=== PATIENT | male | born 1950 | race African-American/Black ===

== ENCOUNTER 2019-08-28 19:38 | Emergency (ER) | payer MEDICARE, MEDICAID ==
[~2019-08-28] VITALS: Ht 172.7 cm; Wt 81.0 kg
[2019-08-29 01:52] LABS: HEMATOCRIT 38.2 % (42.0-52.0); HEMOGLOBIN 12.4 g/dL (14.0-18.0); MEAN CORPUSCULAR HEMOGLOBIN 26.6 pg (28.0-32.0); MEAN CORPUSCULAR VOLUME 81.7 fL (80.0-94.0); PLATELET 159 x1000/uL (130-400); RED BLOOD CELL COUNT 4.68 mill/uL (4.7-6.1); RED CELL DISTRIBUTION WIDTH 14.5 % (11.6-14.6)
[2019-08-29 01:59] LABS: CHLORIDE 108 mEq/L (98-107)
[2019-08-29 03:09] VITALS: BP 132/69
== END 2019-08-29 03:13 | disposition home or self-care (01) ==
LOC: ER 19:38
DX: I10 Essential (primary) hypertension (principal); F17.200 Nicotine dependence, unspecified, uncomplicated; Z86.73 Personal history of transient ischemic attack (TIA), and cerebral infarction without residual deficits; Z93.3 Colostomy status; Z98.890 Other specified postprocedural states
CPT/HCPCS: 36415; 80053; 85027; 93005; 99284

== ENCOUNTER 2019-12-24 20:35 | Inpatient (IN) | payer BC, MEDICAID ==
[~2019-12-24] VITALS: Ht 172.7 cm; Wt 76.7 kg
[2019-12-24] MEDS ORDERED: ASPIRIN 81MG TABLET PO ONE (22:30)
[2019-12-24 23:24] LABS: BASOPHILS % 1.8 % (0.0-2.0); EOSINOPHILS % 1.8 % (0.0-5.0); HEMATOCRIT. 39.1 % (42.0-52.0); HEMOGLOBIN. 12.9 g/dL (14.0-18.0); LYMPHOCYTES % 39.6 % (20.0-50.0); MEAN CORPUSCULAR HEMOGLOBIN 27.5 pg (28.0-32.0); MEAN CORPUSCULAR VOLUME 83.3 fL (80.0-94.0); MEAN PLATELET VOLUME 8.1 fl (7.4-10.4); MONOCYTES % 11.4 % (2.0-8.0); NEUTROPHILS % 45.4 % (40.0-76.0); PLATELET 110 x1000/uL (130-400); RED BLOOD CELL COUNT 4.69 mill/uL (4.7-6.1); RED CELL DISTRIBUTION WIDTH 14.2 % (11.6-14.6)
[2019-12-24 23:31] LABS: CHLORIDE 103 mEq/L (98-107)
[2019-12-25 15:09] VITALS: BP 157/77
[2019-12-25 16:00] VITALS: BP 150/77
[2019-12-25 18:31] LABS: *AMPHETAMINES SCREEN URINE NEGATIVE (NEGATIVE); *BARBITURATES SCREEN URINE NEGATIVE (NEGATIVE); *BENZODIAZEPINES SCREEN URINE NEGATIVE (NEGATIVE); *COCAINE SCREEN URINE PRESUMTIVE POSITIVE (NEGATIVE); METHADONE URINE SCREEN NEGATIVE (NEGATIVE)
[2019-12-25 18:32] LABS: CANNABINOID URINE SCREEN NEGATIVE (NEGATIVE); OPIATES URINE SCREEN NEGATIVE (NEGATIVE); PHENCYCLIDINE URINE SCREEN NEGATIVE (NEGATIVE)
[2019-12-25 20:02] VITALS: BP 159/105
[2019-12-25] MEDS ORDERED: CLONIDINE 0.2MG TABLET PO PRN (20:45)
[2019-12-25] MEDS ORDERED: ZOLPIDEM TARTRATE 5MG TABLET PO PRN (21:00)
[2019-12-25] MEDS: ASPIRIN 81MG TABLET PO SCH (21:28)
[2019-12-25] MEDS: FUROSEMIDE 40MG TABLET PO SCH (21:28)
[2019-12-25] MEDS: LISINOPRIL 10MG TABLET PO SCH (21:28)
[2019-12-25] MEDS: ENOXAPARIN 40MG/0.4ML SYR SUBCUT SCH (21:28)
[2019-12-25 22:00] VITALS: BP 136/88
[2019-12-26] VITALS (12 sets, daily range): BP systolic 121–159; BP diastolic 56–92
[2019-12-26 07:45] LABS: BASOPHILS % 1.1 % (0.0-2.0); EOSINOPHILS % 2.2 % (0.0-5.0); HEMATOCRIT. 40.1 % (42.0-52.0); HEMOGLOBIN. 13.2 g/dL (14.0-18.0); LYMPHOCYTES % 23.4 % (20.0-50.0); MEAN CORPUSCULAR HEMOGLOBIN 27.3 pg (28.0-32.0); MEAN CORPUSCULAR VOLUME 82.8 fL (80.0-94.0); MEAN PLATELET VOLUME 9.1 fl (7.4-10.4); MONOCYTES % 12.1 % (2.0-8.0); NEUTROPHILS % 61.2 % (40.0-76.0); PLATELET 94 x1000/uL (130-400); RED BLOOD CELL COUNT 4.85 mill/uL (4.7-6.1); RED CELL DISTRIBUTION WIDTH 13.9 % (11.6-14.6)
[2019-12-26 07:58] LABS: CHLORIDE 104 mEq/L (98-107)
[2019-12-26 08:06] LABS: CREATINE KINASE 111 IU/L (39-308)
[2019-12-26 08:08] LABS: CREATINE KINASE MB FRACTION < 1.0 ng/mL (0.5-3.6)
[2019-12-26] MEDS: ASPIRIN 81MG TABLET PO SCH (08:15)
[2019-12-26] MEDS: FUROSEMIDE 40MG TABLET PO SCH (08:15)
[2019-12-26] MEDS: LISINOPRIL 10MG TABLET PO SCH (08:15)
[2019-12-26] MEDS ORDERED: IPRATROPIUM/ALBUTEROL 0.5-3(2.5)MG/3ML NEB HHN PRN (12:15)
[2019-12-26] MEDS: THIAMINE HCL 100MG TABLET PO SCH (13:10)
[2019-12-26] MEDS: MULTIVITAMINS,THER W-MINERALS TABLET PO SCH (13:10)
[2019-12-26] MEDS: FOLIC ACID 1MG TABLET PO SCH (13:10)
[2019-12-26 14:41] LABS: BG BASE EXCESS 3.8 mmol/L (-2.0-2.0); BG CARBOXYHEMOGLOBIN 1.4 % (0.5-1.5); BG DEOXYHEMOGLOBIN 3.2 % (0.0-5.0); BG FRACTION INSPIRED OXYGEN 21; BG HCO3 ACT 27.3 mmol/L (22.0-26.0); BG METHEMOGLOBIN 0.2 % (0.0-1.5); BG OXYGEN SATURATION 96.7 % (92.0-98.5); BG OXYHEMOGLOBIN 95.2 % (94.0-97.0); BG PCO2 37.3 mmHg (35.0-45.0); BG PH 7.482 (7.350-7.450); BG PO2 82.7 mmHg (75.0-100.0); BG SAMPLE SITE LEFT RADIAL; BG TOTAL HEMOGLOBIN 14.6 g/dL (12.0-18.0); BG VENT MODE ROOM AIR
[2019-12-26] MEDS: HYDROCODONE/ACETAMINOPHEN 5/325MG TABLET PO PRN ×2 (15:01→21:01)
[2019-12-26 15:28] LABS: CREATINE KINASE 94 IU/L (39-308); CREATINE KINASE MB FRACTION < 1.0 ng/mL (0.5-3.6); T4 FREE 0.85 ng/dL (0.76-1.46)
[2019-12-26] MEDS: IPRATROPIUM/ALBUTEROL 0.5-3(2.5)MG/3ML NEB HHN SCH ×2 (15:35→20:44)
[2019-12-26] MEDS: BUPROPION HCL 150MG TABLET XL 24HR PO SCH (16:19)
[2019-12-26] MEDS: ENOXAPARIN 40MG/0.4ML SYR SUBCUT SCH (21:00)
[2019-12-26] MEDS: PANTOPRAZOLE 40MG DR TABLET PO SCH (21:00)
[2019-12-26] MEDS ORDERED: IOHEXOL-350 100 ML BOTTLE ONE (21:02)
[2019-12-27] VITALS (8 sets, daily range): BP systolic 125–144; BP diastolic 70–86
[2019-12-27] MEDS: IPRATROPIUM/ALBUTEROL 0.5-3(2.5)MG/3ML NEB HHN SCH ×2 (02:13→09:32)
[2019-12-27 06:47] LABS: EOSINOPHILS % 1.4 % (0.0-5.0); HEMATOCRIT. 40.1 % (42.0-52.0); HEMOGLOBIN. 13.2 g/dL (14.0-18.0); LYMPHOCYTES % 22.5 % (20.0-50.0); MEAN CORPUSCULAR HEMOGLOBIN 27.1 pg (28.0-32.0); MEAN CORPUSCULAR VOLUME 82.2 fL (80.0-94.0); MEAN PLATELET VOLUME 8.6 fl (7.4-10.4); MONOCYTES % 13.1 % (2.0-8.0); PLATELET 104 x1000/uL (130-400); RED BLOOD CELL COUNT 4.87 mill/uL (4.7-6.1); RED CELL DISTRIBUTION WIDTH 13.9 % (11.6-14.6)
[2019-12-27 06:58] LABS: CHLORIDE 103 mEq/L (98-107)
[2019-12-27] MEDS: PANTOPRAZOLE 40MG DR TABLET PO SCH (07:14)
[2019-12-27] MEDS: MULTIVITAMINS,THER W-MINERALS TABLET PO SCH (08:08)
[2019-12-27] MEDS: FOLIC ACID 1MG TABLET PO SCH (08:08)
[2019-12-27] MEDS: THIAMINE HCL 100MG TABLET PO SCH (08:09)
[2019-12-27] MEDS: FUROSEMIDE 40MG TABLET PO SCH (08:09)
[2019-12-27] MEDS: ASPIRIN 81MG TABLET PO SCH (08:09)
[2019-12-27] MEDS: BUPROPION HCL 150MG TABLET XL 24HR PO SCH (08:09)
[2019-12-27] MEDS: LISINOPRIL 10MG TABLET PO SCH (08:09)
[2019-12-27] MEDS ORDERED: ASPI-1497 MT (13:36)
[2019-12-27] MEDS ORDERED: AMLO5TAB4 MT (13:36)
[2019-12-27] MEDS ORDERED: PROT40 MT (13:36)
[2019-12-27] MEDS ORDERED: NICO-645 TP (13:36)
[2019-12-27] MEDS ORDERED: ALBU90AE INH (13:36)
== END 2019-12-27 15:53 | disposition home or self-care (01) | DRG 189 ==
LOC: ER 20:35 → 3WST 12-25 00:36 → ENRESERV 12-25 14:04
PROVIDERS: ADMIT Ophthalmology; ATTEND Ophthalmology
DX: J96.00 Acute respiratory failure, unspecified whether with hypoxia or hypercapnia (principal); J44.1 Chronic obstructive pulmonary disease with (acute) exacerbation; J98.11 Atelectasis; R07.89 Other chest pain; F10.10 Alcohol abuse, uncomplicated; D69.6 Thrombocytopenia, unspecified; D64.9 Anemia, unspecified; I10 Essential (primary) hypertension; F17.210 Nicotine dependence, cigarettes, uncomplicated; Z77.090 Contact with and (suspected) exposure to asbestos; R74.0 Nonspecific elevation of levels of transaminase and lactic acid dehydrogenase [LDH]; R79.89 Other specified abnormal findings of blood chemistry; F14.90 Cocaine use, unspecified, uncomplicated; D72.819 Decreased white blood cell count, unspecified; M19.90 Unspecified osteoarthritis, unspecified site; M06.9 Rheumatoid arthritis, unspecified; Z86.73 Personal history of transient ischemic attack (TIA), and cerebral infarction without residual deficits; Z71.41 Alcohol abuse counseling and surveillance of alcoholic; Z71.51 Drug abuse counseling and surveillance of drug abuser
CPT/HCPCS: 36415; 36600; 71045; 71275; 80048; 80053; 80061; 80305; 82375; 82550; 82553; 82805; 83036; 83880; 84439; 84443; 84484; 85025; 85379; 93005; 93306; 93970; 94640; 99285; J1650; Q9967

== ENCOUNTER 2022-09-01 12:09 | Inpatient (IN) | payer OTHER, MEDICAID ==
[~2022-09-01] VITALS: Ht 172.7 cm; Wt 79.8 kg
[~2022-09-01 12:09] MED LIST: ALBU90AE INH; AMLO5TAB4 MT; ASPI-1497 MT; NICO-645 TP; PROT40 MT
[2022-09-01 15:05] LABS: BASOPHILS % 1.1 % (0.0-2.0); EOSINOPHILS % 1.1 % (0.0-5.0); HEMOGLOBIN. 14.1 g/dL (14.0-18.0); LYMPHOCYTES % 28.9 % (20.0-50.0); MEAN CORPUSCULAR HEMOGLOBIN 26.6 pg (28.0-32.0); MEAN PLATELET VOLUME 8.2 fl (7.4-10.4); MONOCYTES % 6.2 % (2.0-8.0); NEUTROPHILS % 62.7 % (40.0-76.0); PLATELET 201 x1000/uL (130-400); RED BLOOD CELL COUNT 5.31 mill/uL (4.7-6.1); RED CELL DISTRIBUTION WIDTH 13.3 % (11.6-14.6)
[2022-09-01 15:08] LABS: CHLORIDE 99 mEq/L (98-107)
[2022-09-01 15:20] LABS: ETHANOL BLOOD 241 mg/dL
[2022-09-01 16:07] LABS: CLARITY URINE CLEAR (CLEAR); COLOR URINE YELLOW (YELLOW); KETONES URINE NEGATIVE (NEGATIVE); LEUKOCYTE ESTERASE URINE NEGATIVE (NEGATIVE); NITRITE URINE NEGATIVE (NEGATIVE); OCCULT BLOOD URINE NEGATIVE (NEGATIVE); PROTEIN URINE NEGATIVE (NEGATIVE); SPECIFIC GRAVITY URINE 1.007 (1.005-1.030); UROBILINOGEN URINE 0.2 E.U./dL (0.2-1.0)
[2022-09-01 16:54] LABS: *AMPHETAMINES SCREEN URINE NEGATIVE (NEGATIVE); *BARBITURATES SCREEN URINE NEGATIVE (NEGATIVE); *BENZODIAZEPINES SCREEN URINE NEGATIVE (NEGATIVE); *COCAINE SCREEN URINE PRESUMTIVE POSITIVE (NEGATIVE); CANNABINOID URINE SCREEN NEGATIVE (NEGATIVE); METHADONE URINE SCREEN NEGATIVE (NEGATIVE); OPIATES URINE SCREEN NEGATIVE (NEGATIVE); PHENCYCLIDINE URINE SCREEN NEGATIVE (NEGATIVE)
[2022-09-01] MEDS ORDERED: SODIUM CHLORIDE 0.9% 1,000 ML IV ONE ×2 (17:45→18:15)
[2022-09-01] MEDS ORDERED: ZOLPIDEM TARTRATE 5MG TABLET PO PRN (20:30)
[2022-09-01] MEDS ORDERED: SODIUM CHLORIDE 0.9% 1,000 ML IV SCH (20:30)
[2022-09-01] MEDS ORDERED: MAGNESIUM/ALUMINUM HYDROXIDE/SIMETHICONE 30ML UDC PO PRN (20:30)
[2022-09-01] MEDS ORDERED: ACETAMINOPHEN 325MG TABLET PO PRN ×2 (20:30)
[2022-09-01] MEDS ORDERED: CLONIDINE 0.1MG TABLET PO PRN (20:30)
[2022-09-01] MEDS ORDERED: DIPHENHYDRAMINE 50MG/ML VIAL IV PRN (20:30)
[2022-09-01] MEDS ORDERED: ONDANSETRON HCL 4MG/2ML INJ IV PRN (20:30)
[2022-09-01 21:04] VITALS: BP 119/56
[2022-09-01 21:42] VITALS: BP 119/56
[2022-09-01] MEDS ORDERED: INFLUENZA VACCINE 05/PF 0.5 ML SYRINGE IM ONE (22:00)
[2022-09-01] MEDS ORDERED: MVI, ADULT NO.1 10 ML, FOLIC ACID 1 MG, THIAMINE HCL 100 MG in SODIUM CHLORIDE 0.9% 1,0... IV SCH ×4 (22:00)
[2022-09-02] VITALS: BP 114/57
[2022-09-02 04:00] VITALS: BP 116/76
[2022-09-02 05:36] LABS: CHLORIDE 108 mEq/L (98-107)
[2022-09-02 05:50] LABS: PHOSPHORUS 3.6 mg/dL (2.5-4.9)
[2022-09-02 06:38] LABS: EOSINOPHILS % 2.7 % (0.0-5.0); HEMATOCRIT. 35.4 % (42.0-52.0); HEMOGLOBIN. 11.6 g/dL (14.0-18.0); LYMPHOCYTES % 31.4 % (20.0-50.0); MEAN CORPUSCULAR HEMOGLOBIN 26.4 pg (28.0-32.0); MEAN CORPUSCULAR VOLUME 80.5 fL (80.0-94.0); MEAN PLATELET VOLUME 8.8 fl (7.4-10.4); MONOCYTES % 13.1 % (2.0-8.0); NEUTROPHILS % 51.8 % (40.0-76.0); PLATELET 156 x1000/uL (130-400); RED CELL DISTRIBUTION WIDTH 12.9 % (11.6-14.6)
[2022-09-02 08:00] VITALS: BP 131/96
[2022-09-02 12:00] VITALS: BP 129/78
[2022-09-02 13:50] VITALS: BP 145/94
== END 2022-09-02 16:45 | disposition home or self-care (01) | DRG 74 ==
LOC: ER 12:09 → 7WST 18:29 → EDBEDREQ 18:31 → EDBEDREQTM 18:31 → ENRESERV 19:49
PROVIDERS: ADMIT Internal Medicine; ATTEND Internal Medicine
DX: G90.9 Disorder of the autonomic nervous system, unspecified (principal); I10 Essential (primary) hypertension; Z86.73 Personal history of transient ischemic attack (TIA), and cerebral infarction without residual deficits; W18.30XA Fall on same level, unspecified, initial encounter; Y93.89 Activity, other specified; Y92.89 Other specified places as the place of occurrence of the external cause; Y99.8 Other external cause status; Y90.8 Blood alcohol level of 240 mg/100 ml or more; F10.129 Alcohol abuse with intoxication, unspecified
CPT/HCPCS: 36415; 80048; 80053; 80305; 80307; 80320; 80329; 81003; 83735; 83880; 84100; 84484; 85025; 90686; 93005; 99291; J3411; J3490; J7030; G0480

== ENCOUNTER 2023-03-14 19:02 | Emergency (ER) | payer OTHER, MEDICAID ==
[~2023-03-14] VITALS: Ht 172.7 cm; Wt 77.3 kg
[2023-03-14 19:05] VITALS: O2SAT 98
[2023-03-14] MEDS ORDERED: IBUP-2028 MT (19:58)
[2023-03-14] MEDS ORDERED: HYDR-4001 MT (19:58)
[2023-03-14] MEDS ORDERED: AMOX-494 MT (19:59)
[2023-03-14] MEDS ORDERED: LIDOCAINE HCL 1% 20ML VIAL (Pyxis) INJ INFIL ONE (20:00)
[2023-03-14] MEDS ORDERED: CEFTRIAXONE SODIUM 1 G/VIAL IM ONE (20:00)
[2023-03-14] MEDS ORDERED: HYDROCODONE/ACETAMINOPHEN 5/325MG TABLET PO ONE (20:00)
[2023-03-14] MEDS ORDERED: IBUPROFEN 400MG TABLET PO ONE (20:00)
[2023-03-14 20:49] VITALS: BP 146/91
[2023-03-14 20:51] VITALS: PULSE 87; RESP 18; TEMP 98.3
== END 2023-03-14 20:50 | disposition home or self-care (01) ==
LOC: ER 19:02
DX: K04.7 Periapical abscess without sinus (principal); I10 Essential (primary) hypertension; Z86.73 Personal history of transient ischemic attack (TIA), and cerebral infarction without residual deficits
CPT/HCPCS: 99283; 96372; J0696